=== PATIENT | female | born 1985 | race Caucasian/White ===

== ENCOUNTER 2019-01-06 00:27 | Emergency (ER) | payer OTHER ==
[~2019-01-06] VITALS: Ht 167.6 cm; Wt 49.4 kg
[2019-01-06] MEDS ORDERED: PROZAC20 MG PO (00:40)
[2019-01-06] MEDS ORDERED: TRAMADOL 50 MG50 MG PO (00:44)
[2019-01-06 01:05] VITALS: BP 102/65
[2019-01-06 01:08] LABS: AMP/METHAMP Negative (Negative); BARBITURATES Negative (Negative); BENZODIAZEPINES Negative (Negative); COCAINE Negative (Negative); METHADONE Negative (Negative); OPIATES Negative (Negative); PCP Negative (Negative); THC POSITIVE (Negative)
== END 2019-01-06 01:10 | disposition home or self-care (01) ==
LOC: M.ERS 00:27
PROVIDERS: Personal Emergency Response Attendant
DX: R41.82 Altered mental status, unspecified (principal); M06.9 Rheumatoid arthritis, unspecified